=== PATIENT | male | born 1945 | race Caucasian/White ===

== ENCOUNTER 2020-06-18 11:27 | Outpatient (CLI) | payer MEDICARE, SELFPAY ==
--- NOTE | 2020-06-18 11:36 | XRR_ITS ---
PROCEDURE INFORMATION: Exam: XR Chest, 2 Views Exam date and time: 06/18/2020 11:54 AM Age: 74 years old Clinical indication: Condition or disease; Other: Follow left chest trauma/rib FX; Patient HX: Follow up left chest trauma- left ribs. Previous XR ribs left; Additional info: Left chest trauma follow up TECHNIQUE: Imaging protocol: XR of the chest Views: 2 views. COMPARISON: CR Ribs LEFT* [id number] 06/04/2020 , no report FINDINGS: Lungs: No consolidation. Small benign left upper lobe granuloma. Pleural space: Minimal left costophrenic angle blunting consistent with small pleural effusion. Small left pneumothorax gone since 06/04/2020. Heart/Mediastinum: Unremarkable. No cardiomegaly. Bones/joints: Several left rib fractures which appear to be healing. XR/XR chest 2V* [id number] IMPRESSION: Healing left rib fractures, very small left pleural effusion. Left pneumothorax gone.
== END 2020-06-18 11:28 | disposition home or self-care (01) ==
LOC: RAD 11:34
PROVIDERS: PCP Nurse Practitioner Family; Visit Provider Internal Medicine Pulmonary Disease
DX: S29.9XXA Unspecified injury of thorax, initial encounter (principal); S22.42XA Multiple fractures of ribs, left side, initial encounter for closed fracture; J90 Pleural effusion, not elsewhere classified
CPT/HCPCS: 71046

== ENCOUNTER → 2021-08-21 10:12 | Outpatient (BNVA) | payer MEDICARE, SELFPAY | PROVIDERS: PCP Nurse Practitioner Family; Visit Provider Nurse Practitioner Family | DX: Z20.822 Contact with and (suspected) exposure to COVID-19 (principal); R09.89 Other specified symptoms and signs involving the circulatory and respiratory systems | CPT/HCPCS: 87635 ==

== ENCOUNTER → 2021-09-30 13:27 | Outpatient (BNVA) | payer MEDICARE, SELFPAY | PROVIDERS: PCP Nurse Practitioner Family; Visit Provider Registered Nurse | DX: E53.8 Deficiency of other specified B group vitamins (principal); G47.52 REM sleep behavior disorder; I10 Essential (primary) hypertension | CPT/HCPCS: 80053; 82607; 85025 ==

== ENCOUNTER → 2023-09-08 14:29 | Outpatient (BNVA) | payer MEDICARE, SELFPAY | PROVIDERS: PCP Nurse Practitioner Family; Visit Provider Nurse Practitioner Family | DX: E11.9 Type 2 diabetes mellitus without complications (principal); I10 Essential (primary) hypertension; E78.5 Hyperlipidemia, unspecified; R05.9 Cough, unspecified | CPT/HCPCS: 80053; 80061; 83036; 85025; 87400; 87426; 87880 ==

== ENCOUNTER → 2025-04-25 09:44 | Outpatient (BNVA) | payer MEDICARE, SELFPAY | PROVIDERS: PCP Nurse Practitioner Family; Visit Provider Nurse Practitioner Family | DX: I10 Essential (primary) hypertension (principal); R53.83 Other fatigue | CPT/HCPCS: 80053; 80061; 85025 ==